=== PATIENT | female | born 2000 | race Caucasian/White ===

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

== ENCOUNTER 2022-03-15 23:42 | Emergency (ER) | payer OTHER ==
[2022-03-15 23:59] VITALS: BP 100/69; PULSE 82; RESP 17; TEMP 98.3; BMI 32.9
[2022-03-16 01:30] LABS: HCG,QUALITATIVE URINE Negative
[2022-03-16 03:47] LABS: URINE APPEARANCE CLEAR; URINE BILIRUBIN NEGATIVE (NEGATIVE); URINE COLOR YELLOW; URINE GLUCOSE (UA) NEGATIVE (NEGATIVE); URINE KETONE NEGATIVE (NEGATIVE); URINE LEUK ESTERASE NEGATIVE (NEGATIVE); URINE NITRITE NEGATIVE (NEGATIVE); URINE PROTEIN NEGATIVE (NEGATIVE); URINE UROBILINOGEN 0.2 mg/dL (0.2-1.0)
[2022-03-16] MEDS ORDERED: DEXAMETHASONE 4 MG TABLET (FP) PO ONE (04:05)
[2022-03-16] MEDS ORDERED: diphenhydrAMINE HCL 25 MG CAPSULE (FP) PO ONE ×2 (04:05→04:19)
[2022-03-16] MEDS ORDERED: IBUPROFEN 400 MG TABLET (FP) PO ONE ×2 (04:06→04:20)
[2022-03-16] MEDS ORDERED: DEXAMETHASONE 4 MG TABLET (FP) ONE (04:20)
== END 2022-03-16 04:46 | disposition home or self-care (01) ==
LOC: JER 23:42
DX: R21 Rash and other nonspecific skin eruption (principal); I88.0 Nonspecific mesenteric lymphadenitis
CPT/HCPCS: 74176-TC; 81003; 84703; 87086; 87186; 99285-25

== ENCOUNTER 2022-04-11 16:41 | Emergency (ER) | payer OTHER ==
[2022-04-11 16:55] VITALS: BP 109/74; PULSE 76; RESP 20; TEMP 98.3; BMI 41.7
[2022-04-11] MEDS ORDERED: IBUPROFEN 600 MG TABLET (FP) PO ONE ×2 (17:55→17:57)
== END 2022-04-11 18:10 | disposition home or self-care (01) ==
LOC: JERFT 16:41
DX: G44.89 Other headache syndrome (principal); V44.5XXA Car driver injured in collision with heavy transport vehicle or bus in traffic accident, initial encounter
CPT/HCPCS: 99283-25